=== PATIENT | female | born 2000 | race Caucasian/White ===

== ENCOUNTER 2021-01-11 09:16 | Emergency (ER) | payer OTHER ==
[~2021-01-11] VITALS: Ht 162.6 cm; Wt 81.1 kg
[2021-01-11 09:17] VITALS: BP 106/62
[2021-01-11] MEDS ORDERED: BACITRACIN OINTMENT 30GM TUBE TOP STA (11:49)
[2021-01-11] MEDS ORDERED: BACI500O21 TOP (11:54)
[2021-06-30] MEDS ORDERED: ONDA4TAB6 PO (09:44)
== END 2021-01-11 12:10 | disposition home or self-care (01) ==
LOC: M ED 09:16
DX: T22.112A Burn of first degree of left forearm, initial encounter (principal); T22.111A Burn of first degree of right forearm, initial encounter; X10.2XXA Contact with fats and cooking oils, initial encounter; Y92.090 Kitchen in other non-institutional residence as the place of occurrence of the external cause; Y93.G3 Activity, cooking and baking; Y99.8 Other external cause status

== ENCOUNTER 2021-07-02 11:37 | Emergency (ER) | payer OTHER ==
[~2021-07-02] VITALS: Ht 154.9 cm; Wt 77.0 kg
[~2021-07-02 11:37] MED LIST: BACI500O21 TOP; ONDA4TAB6 PO
[2021-07-02] MEDS ORDERED: IBUP80TA PO (12:06)
[2021-07-02] MEDS ORDERED: diphenhydrAMINE 50MG/ML VIAL (J1200) IV STA (13:37)
[2021-07-02] MEDS ORDERED: EXCEDRIN MIGRAINE TABLET PO STA (13:37)
[2021-07-02] MEDS ORDERED: NS 1,000 ML IV ONE (13:40)
[2021-07-02] MEDS ORDERED: METOCLOPRAMIDE INJ 10MG/2ML VIAL (J2765 PER 1) IV ONE (13:40)
[2021-07-02 13:41] LABS: BASO # 0.1 10^3/uL (0.0-0.2); BASO % 0.8 % (0.0-1.0); EOS # 0.1 10^3/uL (0.0-0.5); HEMATOCRIT 32.3 % (36.0-47.0); HEMOGLOBIN 10.6 g/dl (12.0-15.5); LYMPH # 1.7 10^3/uL (1.5-5.0); LYMPH % 25.5 % (24.0-44.0); MEAN CORPUSCULAR HGB CONC 32.8 g/dl (32.0-36.5); MEAN CORPUSCULAR VOLUME 88.3 fl (80.0-96.0); MONO # 0.5 10^3/uL (0.0-0.8); MONO % 7.6 % (2.0-8.0); NEUTROPHILS # 4.2 10^3/uL (1.5-8.5); NEUTROPHILS % 63.8 % (36.0-66.0); PLATELET COUNT, AUTOMATED 292 10^3/uL (150-450); RED BLOOD COUNT 3.66 10^6/uL (4.00-5.40); WHITE BLOOD COUNT 6.6 10^3/uL (4.0-10.0)
[2021-07-02 14:00] LABS: BLOOD UREA NITROGEN 11 MG/DL (7-18); CALCIUM LEVEL 8.5 MG/DL (8.5-10.1); CARBON DIOXIDE LEVEL 24 MEQ/L (21-32); CHLORIDE LEVEL 109 MEQ/L (98-107); CREATININE FOR GFR 0.69 MG/DL (0.55-1.30); GLOMERULAR FILTRATION RATE > 60.0 (>60); GLUCOSE, FASTING 102 MG/DL (70-100); POTASSIUM SERUM 3.8 MEQ/L (3.5-5.1); SODIUM LEVEL 141 MEQ/L (136-145)
[2021-07-02 14:02] LABS: HCG, SERUM QUALITATIVE NEGATIVE (NEGATIVE)
[2021-07-02] MEDS ORDERED: EXCETAB33 PO (15:40)
[2021-07-02 16:15] VITALS: BP 92/55
== END 2021-07-02 16:27 | disposition home or self-care (01) ==
LOC: M ED 11:37
DX: G97.1 Other reaction to spinal and lumbar puncture (principal); G43.909 Migraine, unspecified, not intractable, without status migrainosus; Z88.0 Allergy status to penicillin; Z88.5 Allergy status to narcotic agent; Z79.899 Other long term (current) drug therapy
CPT/HCPCS: 36415; 70450; 80048; 83735; 84703; 85025; 96361; 96374; 96375; 99284; J1200; J2765